=== PATIENT | female | born 1960 | race Caucasian/White ===

== ENCOUNTER 2017-01-06 21:38 | Emergency (ER) | payer OTHER ==
[~2017-01-06] VITALS: Ht 154.9 cm; Wt 59.0 kg
[2017-01-06 21:41] VITALS: TEMP 36.9; Ht 154.9 cm; Wt 59.0 kg
[2017-01-06] MEDS ORDERED: OXYCODONE/ACETAMINOPHEN 5-325 TAB PO STA (22:18)
[2017-01-06] MEDS ORDERED: IBUP-1451 PO (22:26)
[2017-01-06] MEDS ORDERED: PERCOCET HOME PACK PO STA (22:54)
--- NOTE | 2017-01-06 22:56 | DIAGNOSTIC IMAGING REPORT ---
LEFT KNEE 3 VIEWS CLINICAL HISTORY: left knee pain pain COMPARISON: None. DISCUSSION: The bones and joint spaces appear intact. There is no evidence of fracture, dislocation or bony disease. There is no evidence for soft tissue swelling. IMPRESSION: Negative study. Electronically signed by: Travis Villafana M.D. 01/06/2017 10:55 PM Dictated Date/Time: 01/06/2017 10:55 PM
[2017-01-06] MEDS ORDERED: OXYC-57 PO (22:58)
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
[2017-01-06 23:17] VITALS: BP 138/79; PULSE 102; O2SAT 95
== END 2017-01-06 23:19 | disposition home or self-care (01) ==
LOC: C.EDB 21:42 → C.EDD 23:19
DX: M25.569 Pain in unspecified knee (principal); M53.3 Sacrococcygeal disorders, not elsewhere classified; F17.200 Nicotine dependence, unspecified, uncomplicated; Z88.0 Allergy status to penicillin